=== PATIENT | female | born 1975 | race Caucasian/White ===

== ENCOUNTER 2024-05-19 23:21 | Observation (INO) ==
[2024-05-20] MEDS ORDERED: Cefepime 2 GM in NS 0.9% 50 ML 50 ML IVPB ONE (00:21)
[2024-05-20 01:12] LABS: ABS Basophils 0.1 10^3/uL (0.0-0.1); ABS Eosinophils 0.1 10^3/uL (0.0-0.5); ABS Lymphocytes 1.1 10^3/uL (1.0-4.8); ABS Monocytes 1.5 10^3/uL (0.0-0.9); ABS Neutrophils 13.2 10^3/uL (1.5-7.6); Eosinophil % 0.7 %; Hemoglobin 12.6 g/dL (11.5-14.3); Lymphocyte % 6.8 %; Mean Corpuscular Hemoglobin 31.2 pg (27-33); Mean Corpuscular Volume 91.9 fL (80-97); Mean Platelet Volume 8.6 fL (7.5-11.2); Platelet Count 300 10^3/uL (150-450); Red Blood Count 4.03 10^6/uL (3.63-4.92); Red Cell Distribution Width 13.2 % (12-17)
[2024-05-20 01:32] LABS: Potassium 3.9 mmol/L (3.5-5.0)
[2024-05-20 01:33] LABS: Calcium 8.6 mg/dL (8.6-10.3); Creatinine, Serum 0.83 mg/dL (0.51-0.95); eGFR CKD-EPI 86.4 (>60)
[2024-05-20] MEDS: Cefepime 2 GM IV - ED ONCE IV ONE (01:33)
[2024-05-20 01:34] LABS: Albumin 3.8 g/dL (3.2-5.2); Albumin/Globulin Ratio 1.1 (1-3); C Reactive Protein 165.49 mg/L (<8.01); Globulin 3.4 g/dL (2-4); Total Bilirubin 0.7 mg/dL (0.2-1.0); Total Protein 7.2 g/dL (6.4-8.9)
[2024-05-20] MEDS: NS 0.9% 1000 ml BAG 2,000 ML IV ONE (01:38)
[2024-05-20] MEDS: LACTATED RINGERS SEPSIS IV ONE (02:35)
[2024-05-20] MEDS ORDERED: Zosyn per Pharmacy NOTE FOLLOW UP SCH ×2 (03:00→04:00)
[2024-05-20] MEDS: Linezolid 600 MG IVPREMIX(*) 600 MG/300 ML BAG IVPB ONE (03:01)
[2024-05-20 06:14] LABS: ABS Basophils 0.1 10^3/uL (0.0-0.1); ABS Eosinophils 0.1 10^3/uL (0.0-0.5); ABS Monocytes 1.4 10^3/uL (0.0-0.9); ABS Neutrophils 11.7 10^3/uL (1.5-7.6); Eosinophil % 0.6 %; Hematocrit 34.3 % (35-45); Hemoglobin 11.8 g/dL (11.5-14.3); Lymphocyte % 6.9 %; Mean Corpuscular Hemoglobin 31.3 pg (27-33); Mean Corpuscular Hgb Conc 34.3 g/dL (31-36); Mean Corpuscular Volume 91.2 fL (80-97); Mean Platelet Volume 7.8 fL (7.5-11.2); Platelet Count 286 10^3/uL (150-450); Red Blood Count 3.76 10^6/uL (3.63-4.92); Red Cell Distribution Width 13.2 % (12-17); White Blood Count 14.2 10^3/uL (3.8-11.8)
[2024-05-20 06:51] LABS: Creatinine, Serum 0.79 mg/dL (0.51-0.95); Potassium 3.5 mmol/L (3.5-5.0); eGFR CKD-EPI 91.6 (>60)
[2024-05-20] MEDS: LEVOTHYROXINE 100 MCG PO SCH (07:48)
[2024-05-20] MEDS ORDERED: Piperacillin/Tazobac 3.375 BAG 3.375 GM/100 ML BAG IV ONE (09:00)
[2024-05-20 09:22] LABS: TSH Ultra Thyroid Stim Horm 12.08 mcIU/mL (0.34-5.60)
[2024-05-20 09:24] LABS: Free T3 2.65 pg/mL (2.5-3.9); Free T4 0.79 ng/dL (0.61-1.12)
[2024-05-20] MEDS ORDERED: Cefepime ADVAN 1 GM in NS 0.9% 50 ML 50 ML IVPB SCH (13:00)
[2024-05-20] MEDS ORDERED: Cefepime ADVAN 2 GM in NS 0.9% 50 ML 50 ML IVPB SCH (13:00)
[2024-05-20] MEDS: Iohexol 350 (CONTRAST) 500 ML MDV IV ONE (14:57)
[2024-05-20] MEDS ORDERED: NS 0.9% IVPB SCH (15:00)
[2024-05-20] MEDS ORDERED: DAPTOMYCIN IVPB SCH (15:00)
[2024-05-20] MEDS: CEFEPIME 2 GM in Dextrose 50 mL IV SCH (15:11)
[2024-05-20] MEDS: Linezolid 600 MG IVPREMIX(*) 600 MG/300 ML BAG IVPB SCH (15:55)
[2024-05-20] MEDS: LIOTHYRONINE 5 MCG PO ONE (20:39)
[2024-05-21 06:25] LABS: ABS Basophils 0.1 10^3/uL (0.0-0.1); ABS Eosinophils 0.4 10^3/uL (0.0-0.5); ABS Monocytes 1.2 10^3/uL (0.0-0.9); ABS Neutrophils 10.4 10^3/uL (1.5-7.6); Eosinophil % 2.7 %; Hematocrit 36.5 % (35-45); Hemoglobin 12.4 g/dL (11.5-14.3); Lymphocyte % 7.9 %; Mean Corpuscular Hemoglobin 31.1 pg (27-33); Mean Corpuscular Volume 91.5 fL (80-97); Platelet Count 324 10^3/uL (150-450); Red Blood Count 3.98 10^6/uL (3.63-4.92); Red Cell Distribution Width 13.1 % (12-17); White Blood Count 13.1 10^3/uL (3.8-11.8)
[2024-05-21 06:43] LABS: C Reactive Protein 160.82 mg/L (<8.01); Calcium 8.4 mg/dL (8.6-10.3); Creatinine, Serum 0.87 mg/dL (0.51-0.95); Potassium 3.9 mmol/L (3.5-5.0); eGFR CKD-EPI 81.6 (>60)
[2024-05-22 05:27] LABS: ABS Eosinophils 0.2 10^3/uL (0.0-0.5); ABS Lymphocytes 1.5 10^3/uL (1.0-4.8); ABS Neutrophils 10.9 10^3/uL (1.5-7.6); Eosinophil % 1.5 %; Hematocrit 36.4 % (35-45); Hemoglobin 12.2 g/dL (11.5-14.3); Lymphocyte % 10.8 %; Mean Corpuscular Hemoglobin 30.5 pg (27-33); Mean Corpuscular Hgb Conc 33.4 g/dL (31-36); Mean Corpuscular Volume 91.3 fL (80-97); Mean Platelet Volume 7.8 fL (7.5-11.2); Platelet Count 411 10^3/uL (150-450); Red Blood Count 3.99 10^6/uL (3.63-4.92); Red Cell Distribution Width 13.4 % (12-17); White Blood Count 13.7 10^3/uL (3.8-11.8)
[2024-05-22 09:39] VITALS: BP 110/68
[2024-05-26 00:46] LABS: Anaplasma phagocytophilum Negative (Negative); B. miyamotoi PCR, B Negative (Negative); Babesia divergens/MO-1 Negative (Negative); Babesia ducani Negative (Negative); Ehrlichia chaffeensis Negative (Negative); Ehrlichia ewingii/canis Negative (Negative); Ehrlichia muris eauclairensis Negative (Negative)
== END 2024-05-22 15:10 | disposition home or self-care (01) ==
LOC: ED 23:21 → EDHOLD 23:21 → SUATTDRO 05-20 02:01 → SSU 05-20 06:57
PROVIDERS: ADMIT Internal Medicine; ATTEND Internal Medicine